=== PATIENT | female | born 1960 | race Caucasian/White ===

== ENCOUNTER 2018-04-11 14:07 | Emergency (ER) | payer SELFPAY ==
[~2018-04-11] VITALS: Ht 160 cm; Wt 75.0 kg
[2018-04-11] MEDS ORDERED: ONDANSETRON HCL 4MG/2ML VIAL IV STA (14:53)
[2018-04-11] MEDS ORDERED: ASPIRIN 81MG TABLET PO ONE (15:00)
[2018-04-11] MEDS: NITROGLYCERIN 0.4MG TABLET SL SL PRN ×2 (15:08→15:47)
[2018-04-11] MEDS ORDERED: SODIUM CHLORIDE 0.9% 1,000 ML IV ONE (15:11)
[2018-04-11 15:18] LABS: BASOPHILS % 0.6 % (0.0-2.0); EOSINOPHILS % 0.4 % (0.0-5.0); HEMATOCRIT. 34.5 % (36.0-48.0); HEMOGLOBIN. 11.4 g/dL (12.0-16.0); LYMPHOCYTES % 21.7 % (20.0-50.0); MEAN CORPUSCULAR HEMOGLOBIN 27.4 pg (28.0-32.0); MEAN PLATELET VOLUME 10.4 fl (7.4-10.4); MONOCYTES % 8.7 % (2.0-8.0); NEUTROPHILS % 68.6 % (40.0-76.0); PLATELET 193 x1000/uL (130-400); RED BLOOD CELL COUNT 4.16 mill/uL (4.2-5.4); RED CELL DISTRIBUTION WIDTH 14.1 % (11.6-14.6)
[2018-04-11 15:25] LABS: CHLORIDE 100 mEq/L (98-107)
[2018-04-11 15:29] LABS: D-DIMER 3.23 mg/L FEU (<0.50); PROTHROMBIN TIME 10.8 sec (9.4-11.6)
[2018-04-11] MEDS ORDERED: MORPHINE SULFATE 2 MG/ML CPJ (NOT FOR IM USE) IV ONE (16:00)
[2018-04-11 16:10] VITALS: BP 123/59
== END 2018-04-11 16:31 | disposition short-term general hospital (02) ==
LOC: ER 14:20 → CANBEDREQ 23:33
DX: I21.4 Non-ST elevation (NSTEMI) myocardial infarction (principal); I24.9 Acute ischemic heart disease, unspecified; E86.0 Dehydration; D64.9 Anemia, unspecified; R79.89 Other specified abnormal findings of blood chemistry; E78.00 Pure hypercholesterolemia, unspecified; I10 Essential (primary) hypertension; G35 Multiple sclerosis; F17.200 Nicotine dependence, unspecified, uncomplicated; Z90.710 Acquired absence of both cervix and uterus; Z88.6 Allergy status to analgesic agent; Z79.82 Long term (current) use of aspirin
CPT/HCPCS: 36415; 71045; 80053; 83690; 83880; 84484; 85025; 85379; 85610; 93005; 96361; 96374; 96375; 99291; J2270; J2405; J7030; Z7610

== ENCOUNTER 2018-04-26 08:15 | Day surgery (SDC) | payer OTHER ==
[~2018-04-26] VITALS: Ht 162.6 cm; Wt 79.4 kg
[2018-04-26] MEDS ORDERED: ASPI-1158 MT (09:06)
[2018-04-26] MEDS ORDERED: ISOS30TA6 MT (09:06)
[2018-04-26] MEDS ORDERED: ROSU40TA MT (09:06)
[2018-04-26] MEDS ORDERED: PANT40TA4 MT (09:06)
[2018-04-26] MEDS ORDERED: CLOP75TA16 MT (09:06)
[2018-04-26] MEDS ORDERED: LOSA100T14 MT (09:06)
[2018-04-26] MEDS ORDERED: LIDOCAINE HCL 1% 20ML VIAL (Pyxis) INJ ONE (10:43)
[2018-04-26] MEDS ORDERED: MIDAZOLAM HCL 2 MG/2 ML VIAL ONE (10:43)
[2018-04-26] MEDS ORDERED: FENTANYL CITRATE/PF 50MCG/ML 2ML VIAL ONE (10:43)
[2018-04-26] MEDS ORDERED: IODIXANOL 320MG/ML 100 ML BOTTLE IV ONE (10:44)
[2018-04-26] MEDS ORDERED: ONDANSETRON HCL 4MG/2ML VIAL IV PRN (12:00)
[2018-04-26] MEDS ORDERED: ACETAMINOPHEN 325MG TABLET PO PRN (12:00)
[2018-04-26] MEDS ORDERED: NICARDIPINE 100MCG/ML 10ML VIAL (CATH LAB) IV ONE (15:03)
[2018-04-26] MEDS ORDERED: NITROGLYCERIN 50MCG/ML 10ML VIAL (CATH LAB) IV ONE (15:03)
[2018-04-26] MEDS ORDERED: HEPARIN SODIUM 1,000 UNIT/1ML VIAL IV ONE (15:03)
== END 2018-04-26 15:15 | disposition home or self-care (01) ==
LOC: CARD 08:15
PROVIDERS: ATTEND Specialist
DX: I25.10 Atherosclerotic heart disease of native coronary artery without angina pectoris (principal); I21.3 ST elevation (STEMI) myocardial infarction of unspecified site; D64.9 Anemia, unspecified; I10 Essential (primary) hypertension; G35 Multiple sclerosis; F17.200 Nicotine dependence, unspecified, uncomplicated; E78.00 Pure hypercholesterolemia, unspecified; Z79.82 Long term (current) use of aspirin; Z79.899 Other long term (current) drug therapy; Z90.710 Acquired absence of both cervix and uterus; Z88.6 Allergy status to analgesic agent
CPT/HCPCS: 93458; 99152; 99153; C1769; C1887; C1893; J1644; J2250; J3010; J3490; Q9967

== ENCOUNTER 2018-10-28 10:51 | Day surgery (SDC) | payer OTHER ==
[~2018-10-28] VITALS: Ht 161.3 cm; Wt 78.9 kg
[~2018-10-28 10:51] MED LIST: ASPI-1158 MT; CLOP75TA16 MT; ISOS30TA6 MT; LOSA100T14 MT; PANT40TA4 MT; ROSU40TA MT
[2018-10-28 12:20] LABS: PARTIAL THROMBOPLASTIN TIME 28.7 sec (23.4-31.0); PROTHROMBIN TIME 10.4 sec (9.1-11.1)
[2018-10-28 12:21] LABS: BASOPHILS % 1.4 % (0.0-2.0); EOSINOPHILS % 2.9 % (0.0-5.0); HEMATOCRIT. 40.6 % (36.0-48.0); HEMOGLOBIN. 13.2 g/dL (12.0-16.0); LYMPHOCYTES % 26.8 % (20.0-50.0); MEAN CORPUSCULAR HEMOGLOBIN 26.3 pg (28.0-32.0); MEAN CORPUSCULAR VOLUME 80.9 fL (81.0-99.0); MEAN PLATELET VOLUME 10.4 fl (7.4-10.4); MONOCYTES % 13.6 % (2.0-8.0); NEUTROPHILS % 55.3 % (40.0-76.0); PLATELET 195 x1000/uL (130-400); RED BLOOD CELL COUNT 5.02 mill/uL (4.2-5.4); RED CELL DISTRIBUTION WIDTH 16.1 % (11.6-14.6)
[2018-10-28 12:30] LABS: CHLORIDE 106 mEq/L (98-107)
[2018-10-28] MEDS ORDERED: LIDOCAINE HCL 1% 20ML VIAL (Pyxis) INJ ONE (13:12)
[2018-10-28] MEDS ORDERED: IODIXANOL 320MG/ML 200ML BOTTLE ONE (13:13)
[2018-10-28] MEDS ORDERED: MIDAZOLAM HCL 2 MG/2 ML VIAL ONE (13:41)
[2018-10-28] MEDS ORDERED: FENTANYL CITRATE/PF 50MCG/ML 2ML VIAL ONE (13:41)
[2018-10-28] MEDS ORDERED: DIPHENHYDRAMINE 50MG/ML VIAL ONE (13:42)
[2018-10-28] MEDS ORDERED: ACETAMINOPHEN 325MG TABLET PO PRN (14:30)
[2018-10-28] MEDS ORDERED: ATROPINE SULFATE 1MG/10ML SYR IV PRN (14:30)
[2018-10-28] MEDS ORDERED: ONDANSETRON HCL 4MG/2ML INJ IV PRN (14:30)
[2018-10-28] MEDS ORDERED: POTA20TA12 PO (14:32)
[2018-10-28] MEDS ORDERED: ATEN-175 PO (14:32)
[2018-10-28] MEDS ORDERED: PANT40TA4 PO (14:32)
[2018-10-28] MEDS ORDERED: AMLO10TA4 PO (14:32)
[2018-10-28] MEDS ORDERED: NITR12SP4 TL (14:53)
[2018-10-28] MEDS ORDERED: FURO-151 PO (14:53)
[2018-10-28] MEDS ORDERED: HEPARIN SODIUM 1,000 UNIT/1ML VIAL IV ONE (15:33)
== END 2018-10-28 18:00 | disposition home or self-care (01) ==
LOC: CCL 10:51
PROVIDERS: ATTEND Specialist
DX: I25.799 Atherosclerosis of other coronary artery bypass graft(s) with unspecified angina pectoris (principal); I25.2 Old myocardial infarction; E78.5 Hyperlipidemia, unspecified; I34.0 Nonrheumatic mitral (valve) insufficiency; Z95.5 Presence of coronary angioplasty implant and graft; Z90.710 Acquired absence of both cervix and uterus; I10 Essential (primary) hypertension
CPT/HCPCS: 36415; 80048; 85025; 85610; 85730; 93459; 99152; 99153; C1760; C1769; C1887; C1893; J1200; J1644; J2250; J3010; J3490; Q9967; G0500

== ENCOUNTER 2019-07-28 08:02 | Day surgery (SDC) | payer OTHER ==
[~2019-07-28] VITALS: Ht 160 cm; Wt 79.4 kg
[~2019-07-28 08:02] MED LIST changes: +AMLO10TA4 PO; +ATEN-175 PO; -CLOP75TA16 MT; +CLOP75TA4 MT; +FURO-151 PO; -ISOS30TA6 MT; -LOSA100T14 MT; +LOSA100T32 MT; +NITR12SP4 TL; -PANT40TA4 MT; +PANT40TA4 PO; +POTA20TA12 PO
[2019-07-28] MEDS ORDERED: IODIXANOL 320MG/ML 100 ML BOTTLE IV ONE ×2 (08:18→10:23)
[2019-07-28] MEDS ORDERED: LIDOCAINE HCL 1% 20ML VIAL (Pyxis) INJ ONE (08:18)
[2019-07-28] MEDS ORDERED: FENTANYL CITRATE/PF 50MCG/ML 2ML VIAL ONE (09:16)
[2019-07-28] MEDS ORDERED: MIDAZOLAM HCL 2 MG/2 ML VIAL ONE ×2 (09:16→09:43)
[2019-07-28] MEDS ORDERED: HEPARIN SODIUM 1,000 UNIT/1ML VIAL IV ONE (10:00)
[2019-07-28] MEDS ORDERED: IOHEXOL-300 100 ML BOTTLE ONE (10:05)
[2019-07-28] MEDS ORDERED: PROTAMINE SULFATE 10MG/ML VIAL 5ML IV ONE (10:28)
[2019-07-28] MEDS ORDERED: ATROPINE SULFATE 1MG/10ML SYR IV PRN (11:15)
[2019-07-28] MEDS ORDERED: ONDANSETRON HCL 4MG/2ML INJ IV PRN (11:15)
== END 2019-07-28 16:20 | disposition home or self-care (01) ==
LOC: CCL 08:02
PROVIDERS: ATTEND Specialist
DX: I25.718 Atherosclerosis of autologous vein coronary artery bypass graft(s) with other forms of angina pectoris (principal); I10 Essential (primary) hypertension; E78.5 Hyperlipidemia, unspecified; I25.2 Old myocardial infarction; J44.9 Chronic obstructive pulmonary disease, unspecified; Z79.82 Long term (current) use of aspirin; Z79.899 Other long term (current) drug therapy; Z95.1 Presence of aortocoronary bypass graft; Z88.5 Allergy status to narcotic agent; Z82.49 Family history of ischemic heart disease and other diseases of the circulatory system
CPT/HCPCS: 85347; 93459; 93571; 99152; 99153; C1760; C1769; C1887; C1893; J1644; J2250; J2720; J3010; J3490; Q9967; G0500

== ENCOUNTER 2022-07-04 11:55 | Inpatient (IN) | payer OTHER ==
[~2022-07-04] VITALS: Ht 160 cm; Wt 77.1 kg
[~2022-07-04 11:55] MED LIST changes: -ASPI-1158 MT; +ASPI-1406 MT; -ATEN-175 PO; +CLOP-31 MT; -CLOP75TA4 MT; -LOSA100T32 MT; -PANT40TA4 PO; +PANT40TA51 PO; -POTA20TA12 PO
[2022-07-04 12:59] LABS: BASOPHILS % 0.7 % (0.0-2.0); EOSINOPHILS % 1.4 % (0.0-5.0); HEMATOCRIT. 42.3 % (36.0-48.0); HEMOGLOBIN. 14.1 g/dL (12.0-16.0); LYMPHOCYTES % 23.8 % (20.0-50.0); MEAN CORPUSCULAR VOLUME 81.2 fL (81.0-99.0); MEAN PLATELET VOLUME 10.9 fl (7.4-10.4); MONOCYTES % 6.4 % (2.0-8.0); NEUTROPHILS % 67.7 % (40.0-76.0); PLATELET 216 x1000/uL (130-400); RED BLOOD CELL COUNT 5.21 mill/uL (4.2-5.4); RED CELL DISTRIBUTION WIDTH 14.6 % (11.6-14.6)
[2022-07-04 13:17] LABS: CHLORIDE 104 mEq/L (98-107)
[2022-07-04 13:23] LABS: PROTHROMBIN TIME 10.9 sec (9.6-11.0)
[2022-07-04] MEDS: NITROGLYCERIN OINT 1GM/INCH UDPKT TD SCH ×2 (13:23→22:00)
[2022-07-04] MEDS ORDERED: IODIXANOL 320MG/ML 100 ML BOTTLE IV ONE (13:29)
[2022-07-04] MEDS ORDERED: LIDOCAINE HCL/PF 1% 10 MG/ML 5ML VIAL ONE (13:30)
[2022-07-04] MEDS ORDERED: HEPARIN 1000 UNITS/ML 10ML ONE (14:05)
[2022-07-04] MEDS ORDERED: MIDAZOLAM HCL 2 MG/2 ML VIAL ONE ×2 (14:05→14:52)
[2022-07-04] MEDS ORDERED: FENTANYL CITRATE/PF 50MCG/ML 2ML VIAL ONE (14:05)
[2022-07-04] MEDS ORDERED: KCL 20MEQ/100ML PREMIX 100 ML IV ONE (14:38)
[2022-07-04] MEDS ORDERED: ASPIRIN 325MG TABLET ONE (15:31)
[2022-07-04] MEDS ORDERED: CLOPIDOGREL 75MG TABLET ONE (15:32)
[2022-07-04] MEDS ORDERED: POTASSIUM CHLORIDE 20MEQ TABLET SR PO NR (15:45)
[2022-07-04] MEDS ORDERED: ACETAMINOPHEN 325MG TABLET PO PRN (16:00)
[2022-07-04] MEDS ORDERED: ONDANSETRON HCL 4MG/2ML INJ IV PRN (16:00)
[2022-07-04] MEDS ORDERED: ATROPINE SULFATE 1MG/10ML SYR IV PRN (16:00)
[2022-07-04 17:39] VITALS: BP 128/76
[2022-07-04 20:00] VITALS: BP 142/77
[2022-07-04 22:01] VITALS: BP 123/80
[2022-07-05] VITALS (7 sets, daily range): BP systolic 111–133; BP diastolic 69–96
[2022-07-05] MEDS: NITROGLYCERIN OINT 1GM/INCH UDPKT TD SCH (06:00)
[2022-07-05 06:44] LABS: BASOPHILS % 0.3 % (0.0-2.0); EOSINOPHILS % 2.8 % (0.0-5.0); HEMATOCRIT. 37.8 % (36.0-48.0); HEMOGLOBIN. 12.7 g/dL (12.0-16.0); LYMPHOCYTES % 19.9 % (20.0-50.0); MEAN CORPUSCULAR HEMOGLOBIN 27.3 pg (28.0-32.0); MEAN PLATELET VOLUME 10.7 fl (7.4-10.4); PLATELET 172 x1000/uL (130-400); RED BLOOD CELL COUNT 4.67 mill/uL (4.2-5.4); RED CELL DISTRIBUTION WIDTH 14.3 % (11.6-14.6)
[2022-07-05 06:56] LABS: CHLORIDE 106 mEq/L (98-107)
[2022-07-05 07:06] LABS: HDL CHOLESTEROL 39 mg/dL (40-59); LDL CHOLESTEROL 99 mg/dL (5-100)
[2022-07-05] MEDS ORDERED: ASPIRIN 325MG TABLET PO SCH (09:00)
[2022-07-05] MEDS ORDERED: CLOPIDOGREL 75MG TABLET PO SCH (09:00)
[2022-07-05] MEDS ORDERED: POTASSIUM CHLORIDE 20MEQ TABLET SR PO NR (11:15)
== END 2022-07-05 13:15 | disposition home or self-care (01) | DRG 246 ==
LOC: ER 11:55 → EDBEDREQTM 14:10 → EDBEDREQ 14:10 → 3WST 17:30
PROVIDERS: ADMIT Specialist; ATTEND Specialist
PROC: 027035Z Dilation of Coronary Artery, One Artery with Two Drug-eluting Intraluminal Devices, Percutaneous Approach (ICD-10-PCS; principal; 2022-07-04)
PROC: 4A023N7 Measurement of Cardiac Sampling and Pressure, Left Heart, Percutaneous Approach (ICD-10-PCS; 2022-07-04)
PROC: B2131ZZ Fluoroscopy of Multiple Coronary Artery Bypass Grafts using Low Osmolar Contrast (ICD-10-PCS; 2022-07-04)
PROC: 5A2204Z Restoration of Cardiac Rhythm, Single (ICD-10-PCS; 2022-07-04)
DX: T82.857A Stenosis of other cardiac prosthetic devices, implants and grafts, initial encounter (principal); I49.01 Ventricular fibrillation; I25.790 Atherosclerosis of other coronary artery bypass graft(s) with unstable angina pectoris; I24.9 Acute ischemic heart disease, unspecified; I87.1 Compression of vein; Z20.822 Contact with and (suspected) exposure to COVID-19; M32.9 Systemic lupus erythematosus, unspecified; E78.00 Pure hypercholesterolemia, unspecified; E87.6 Hypokalemia; F32.A Depression, unspecified; F41.9 Anxiety disorder, unspecified; I10 Essential (primary) hypertension; J44.9 Chronic obstructive pulmonary disease, unspecified; Z90.710 Acquired absence of both cervix and uterus; Z82.49 Family history of ischemic heart disease and other diseases of the circulatory system; Z95.1 Presence of aortocoronary bypass graft; I25.2 Old myocardial infarction; Z95.5 Presence of coronary angioplasty implant and graft; Z88.6 Allergy status to analgesic agent; Z88.8 Allergy status to other drugs, medicaments and biological substances; Z79.899 Other long term (current) drug therapy; Y83.2 Surgical operation with anastomosis, bypass or graft as the cause of abnormal reaction of the patient, or of later complication, without mention of misadventure at the time of the procedure; Y92.89 Other specified places as the place of occurrence of the external cause
CPT/HCPCS: 36415; 71045; 80048; 80053; 80061; 83735; 83880; 84484; 85025; 87426; 92937; 93005; 93455; 99291; C1769; C1874; C1887; C1893; C9803; J1644; J2250; J2405; J3010; J3480; J3490; Q9967

== ENCOUNTER 2022-12-25 19:24 | Inpatient (IN) | payer OTHER ==
[~2022-12-25] VITALS: Ht 160 cm; Wt 90.4 kg
[2022-12-25] MEDS ORDERED: ASPIRIN 81MG TABLET PO ONE (20:00)
[2022-12-25] MEDS ORDERED: NITROGLYCERIN 0.4MG TABLET SL SL PRN (20:00)
[2022-12-25 20:53] LABS: BASOPHILS % 0.4 % (0.0-2.0); EOSINOPHILS % 1.8 % (0.0-5.0); HEMATOCRIT. 38.8 % (36.0-48.0); LYMPHOCYTES % 18.5 % (20.0-50.0); MEAN CORPUSCULAR HEMOGLOBIN 26.9 pg (28.0-32.0); MEAN CORPUSCULAR VOLUME 80.2 fL (81.0-99.0); MONOCYTES % 10.4 % (2.0-8.0); NEUTROPHILS % 68.9 % (40.0-76.0); PLATELET 225 x1000/uL (130-400); RED BLOOD CELL COUNT 4.84 mill/uL (4.2-5.4); RED CELL DISTRIBUTION WIDTH 13.7 % (11.6-14.6)
[2022-12-25 21:05] LABS: CHLORIDE 106 mEq/L (98-107)
[2022-12-25 21:06] LABS: D-DIMER 0.42 mg/L FEU (<0.50); INR 1.1; PARTIAL THROMBOPLASTIN TIME 29.6 sec (23.4-31.0); PROTHROMBIN TIME 11.5 sec (9.6-11.0)
[2022-12-26] MEDS ORDERED: ONDANSETRON HCL 4MG/2ML INJ IV PRN (00:15)
[2022-12-26] MEDS ORDERED: CLONIDINE 0.1MG TABLET PO PRN (00:15)
[2022-12-26] MEDS ORDERED: IPRATROPIUM/ALBUTEROL 0.5-3(2.5)MG/3ML NEB HHN PRN (00:15)
[2022-12-26 04:00] VITALS: BP 107/70
[2022-12-26 05:50] VITALS: BP 121/69
[2022-12-26 08:00] VITALS: BP 128/69
[2022-12-26] MEDS: AMLODIPINE 10MG TABLET PO SCH ×3 (09:00→10:18)
[2022-12-26] MEDS ORDERED: PANTOPRAZOLE SODIUM 40 MG/VIAL IV SCH (09:00)
[2022-12-26] MEDS ORDERED: CLOPIDOGREL 75MG TABLET PO SCH (09:00)
[2022-12-26] MEDS ORDERED: ENOXAPARIN 40MG/0.4ML SYR SUBCUT SCH (09:00)
[2022-12-26] MEDS ORDERED: FUROSEMIDE 40MG TABLET PO SCH (09:00)
[2022-12-26] MEDS ORDERED: ASPIRIN 81MG TABLET PO SCH (09:00)
[2022-12-26] MEDS ORDERED: POTASSIUM CHLORIDE 20MEQ TABLET SR PO NR (09:15)
[2022-12-26 11:33] VITALS: BP 128/69
[2022-12-26] MEDS ORDERED: ATORVASTATIN CALCIUM 40MG TABLET PO SCH (21:00)
== END 2022-12-26 11:56 | disposition home or self-care (01) | DRG 313 ==
LOC: ER 19:24 → MICUSO 22:49 → 7EST 12-26 03:37
PROVIDERS: ADMIT Internal Medicine; ATTEND Internal Medicine
DX: R07.89 Other chest pain (principal); I25.10 Atherosclerotic heart disease of native coronary artery without angina pectoris; E66.9 Obesity, unspecified; K21.9 Gastro-esophageal reflux disease without esophagitis; E78.00 Pure hypercholesterolemia, unspecified; E78.5 Hyperlipidemia, unspecified; I11.9 Hypertensive heart disease without heart failure; I49.3 Ventricular premature depolarization; Z68.33 Body mass index [BMI] 33.0-33.9, adult; Z88.6 Allergy status to analgesic agent; Z90.710 Acquired absence of both cervix and uterus; Z95.1 Presence of aortocoronary bypass graft; Z86.73 Personal history of transient ischemic attack (TIA), and cerebral infarction without residual deficits; Z87.891 Personal history of nicotine dependence; Z79.82 Long term (current) use of aspirin; Z79.02 Long term (current) use of antithrombotics/antiplatelets; Z79.899 Other long term (current) drug therapy; Z86.711 Personal history of pulmonary embolism; Z95.5 Presence of coronary angioplasty implant and graft; Z82.49 Family history of ischemic heart disease and other diseases of the circulatory system; Z88.8 Allergy status to other drugs, medicaments and biological substances
CPT/HCPCS: 36415; 71045; 80053; 83880; 84484; 85025; 85379; 93005; 93970; 99285; C9113; J1650

== ENCOUNTER 2024-05-06 08:11 | Inpatient (IN) | payer MEDICARE, BC ==
[~2024-05-06] VITALS: Ht 160 cm; Wt 89.8 kg
[~2024-05-06 08:11] MED LIST changes: -AMLO10TA4 PO; +AMLO5TAB88 PO; -ASPI-1406 MT; +ASPI-1406 PO; +BUPR-315 PO; +CHOL100022 PO; +CITA10TA88 PO; -CLOP-31 MT; +CLOP75TA33 PO; -FURO-151 PO; -NITR12SP4 TL; +PANT20TA17 PO; -PANT40TA51 PO; +POTA-204 PO; +ROSU40TA; -ROSU40TA MT
[2024-05-06] MEDS: SODIUM CHLORIDE 0.45% 500 ML IV ONE (09:15)
[2024-05-06] MEDS ORDERED: FURO-151 PO (09:31)
[2024-05-06] MEDS ORDERED: IODIXANOL 320 MG/ML 150ML BOTTLE IV ONE (10:46)
[2024-05-06] MEDS ORDERED: FENTANYL CITRATE/PF 50MCG/ML 2ML VIAL ONE (10:46)
[2024-05-06] MEDS ORDERED: MIDAZOLAM HCL 2 MG/2 ML VIAL ONE ×2 (10:46→11:12)
[2024-05-06] MEDS ORDERED: HEPARIN 1000 UNITS/ML 10ML ONE (10:47)
[2024-05-06] MEDS ORDERED: LIDOCAINE HCL 1% 20ML VIAL ONE (10:53)
[2024-05-06] MEDS ORDERED: ASPIRIN 325MG TABLET ONE (11:44)
[2024-05-06] MEDS ORDERED: CLOPIDOGREL 75MG TABLET ONE (11:45)
[2024-05-06] MEDS ORDERED: ATROPINE SULFATE 1MG/10ML SYR IV PRN (12:15)
[2024-05-06] MEDS ORDERED: ACETAMINOPHEN 325MG TABLET PO PRN (12:15)
[2024-05-06] MEDS ORDERED: ONDANSETRON HCL 4MG/2ML INJ IV PRN (12:15)
[2024-05-06 18:15] VITALS: BP 102/55; PULSE 68; RESP 18
[2024-05-06 18:29] VITALS: BP 102/55; PULSE 68; RESP 18; TEMP 37.1964
[2024-05-06 20:00] VITALS: BP 128/68; PULSE 74; RESP 17; TEMP 36.61404; O2SAT 96
[2024-05-06] MEDS: AMLODIPINE 5MG TABLET PO SCH (22:20)
[2024-05-06] MEDS: ZOLPIDEM TARTRATE 5MG TABLET PO PRN (22:20)
[2024-05-07] VITALS: BP 135/76; PULSE 68; RESP 14; TEMP 36.55848; O2SAT 96
[2024-05-07 04:00] VITALS: BP 129/79; PULSE 77; RESP 22; TEMP 36.22512; O2SAT 96
[2024-05-07 07:00] LABS: BASOPHILS % 0.8 % (0.0-2.0); DIFFERENTIAL COMMENT 0; EOSINOPHILS % 5.6 % (0.0-5.0); HEMATOCRIT. 37.6 % (36.0-48.0); HEMOGLOBIN. 12.3 g/dL (12.0-16.0); LYMPHOCYTES % 16.6 % (20.0-50.0); MEAN CORPUSCULAR HEMOGLOBIN 26.6 pg (28.0-32.0); MEAN CORPUSCULAR HGB CONC 32.7 g/dL (31.0-37.0); MEAN CORPUSCULAR VOLUME 81.4 fL (81.0-99.0); MEAN PLATELET VOLUME 10.5 fl (7.4-10.4); MONOCYTES % 10.1 % (2.0-8.0); NEUTROPHILS % 66.9 % (40.0-76.0); PLATELET 180 x1000/uL (130-400); RED BLOOD CELL COUNT 4.61 mill/uL (4.2-5.4); RED CELL DISTRIBUTION WIDTH 13.7 % (11.6-14.6)
[2024-05-07 07:01] LABS: CARBON DIOXIDE 24 mEq/L (21-32); CHLORIDE 106 mEq/L (98-107); POTASSIUM 2.9 mEq/L (3.5-5.1); SODIUM 138 mEq/L (136-145)
[2024-05-07 07:02] LABS: CALCIUM 8.9 mg/dL (8.7-10.4)
[2024-05-07 07:06] LABS: CREATININE 0.9 mg/dL (0.6-1.0)
[2024-05-07 07:07] LABS: GLUCOSE 164 mg/dL (70-105); UREA NITROGEN BLOOD 8 mg/dL (9-23)
[2024-05-07 08:00] VITALS: BP 132/80; PULSE 78; RESP 17; TEMP 36.16956; O2SAT 96
[2024-05-07] MEDS: ASPIRIN 325MG TABLET PO SCH (08:54)
[2024-05-07] MEDS: POTASSIUM CHLORIDE 20MEQ TABLET SR PO NR (08:54)
[2024-05-07] MEDS: CLOPIDOGREL 75MG TABLET PO SCH (08:54)
[2024-05-07] MEDS ORDERED: CLOP-31 PO (10:18)
[2024-05-07 10:20] VITALS: BP 132/81; PULSE 78; TEMP 97.1; O2SAT 98
== END 2024-05-07 12:06 | disposition home health service (06) | DRG 324 ==
LOC: OR 08:11 → 3WST 18:59
PROVIDERS: ADMIT Specialist; ATTEND Specialist
PROC: 4A023N7 Measurement of Cardiac Sampling and Pressure, Left Heart, Percutaneous Approach (ICD-10-PCS; principal; 2024-05-06)
PROC: 027034Z Dilation of Coronary Artery, One Artery with Drug-eluting Intraluminal Device, Percutaneous Approach (ICD-10-PCS; 2024-05-06)
PROC: 02F03ZZ Fragmentation in Coronary Artery, One Artery, Percutaneous Approach (ICD-10-PCS; 2024-05-06)
PROC: B213YZZ Fluoroscopy of Multiple Coronary Artery Bypass Grafts using Other Contrast (ICD-10-PCS; 2024-05-06)
PROC: B211YZZ Fluoroscopy of Multiple Coronary Arteries using Other Contrast (ICD-10-PCS; 2024-05-06)
PROC: B218YZZ Fluoroscopy of Left Internal Mammary Bypass Graft using Other Contrast (ICD-10-PCS; 2024-05-06)
DX: T82.855A Stenosis of coronary artery stent, initial encounter (principal); I25.110 Atherosclerotic heart disease of native coronary artery with unstable angina pectoris; E78.5 Hyperlipidemia, unspecified; E87.6 Hypokalemia; Y83.1 Surgical operation with implant of artificial internal device as the cause of abnormal reaction of the patient, or of later complication, without mention of misadventure at the time of the procedure; F32.A Depression, unspecified; I10 Essential (primary) hypertension; J44.9 Chronic obstructive pulmonary disease, unspecified; I49.1 Atrial premature depolarization; I49.3 Ventricular premature depolarization; Z95.1 Presence of aortocoronary bypass graft; Z79.02 Long term (current) use of antithrombotics/antiplatelets; Z79.82 Long term (current) use of aspirin; Z79.899 Other long term (current) drug therapy; I25.2 Old myocardial infarction; Z88.8 Allergy status to other drugs, medicaments and biological substances; Y92.89 Other specified places as the place of occurrence of the external cause
CPT/HCPCS: 36415; 80048; 85025; 85347; 92928; 93005; 93455; C1760; C1769; C1874; C1887; J1644; J2250; J3010; J3490; Q9967; C1761